=== PATIENT | female | born 2000 | race African-American/Black ===

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

== ENCOUNTER 2024-05-27 10:59 | Emergency (ER) | payer MEDICAID ==
[~2024-05-27] VITALS: Ht 167.6 cm; Wt 74.8 kg
[2024-05-27 11:06] VITALS: BP 107/59; PULSE 87; RESP 16; TEMP 98.2; O2SAT 98
[2024-05-27] MEDS: LIDOCAINE HCL/PF 1% 10 MG/ML 5ML VIAL INFIL ONE (11:33)
[2024-05-27] MEDS: TETANUS, DIPHTHERIA, PERTUSSIS VAC/PF 0.5ML (>10YR OLD) IM ONE (11:33)
[2024-05-27] MEDS: BACITRACIN ZINC OINT UDPKT TOP ONE (11:33)
== END 2024-05-27 12:40 | disposition home or self-care (01) ==
LOC: ER 11:06
DX: S61.211A Laceration without foreign body of left index finger without damage to nail, initial encounter (principal); W26.0XXA Contact with knife, initial encounter; Y93.89 Activity, other specified; Y92.89 Other specified places as the place of occurrence of the external cause; Y99.8 Other external cause status
CPT/HCPCS: 12001; 99282; J3490; Z7610 ×2

== ENCOUNTER 2024-05-30 10:18 | Emergency (ER) | payer MEDICAID ==
[~2024-05-30] VITALS: Ht 170.2 cm; Wt 75.0 kg
[2024-05-30 10:22] VITALS: BP 112/72; PULSE 93; RESP 18; TEMP 98.2; O2SAT 97
== END 2024-05-30 11:23 | disposition home or self-care (01) ==
LOC: ER 10:18
DX: S61.211D Laceration without foreign body of left index finger without damage to nail, subsequent encounter (principal); X58.XXXD Exposure to other specified factors, subsequent encounter
CPT/HCPCS: 99281

== ENCOUNTER 2024-06-13 09:16 | Emergency (ER) | payer MEDICAID ==
[~2024-06-13] VITALS: Ht 170.2 cm; Wt 75.0 kg
[2024-06-13 09:39] VITALS: O2SAT 99
[2024-06-13 10:48] VITALS: BP 124/78; PULSE 80; RESP 18; TEMP 98.2
== END 2024-06-13 11:15 | disposition home or self-care (01) ==
LOC: ER 09:16
DX: S61.211D Laceration without foreign body of left index finger without damage to nail, subsequent encounter (principal); Z48.02 Encounter for removal of sutures; X58.XXXD Exposure to other specified factors, subsequent encounter
CPT/HCPCS: 99281; Z7610 ×2